=== PATIENT | male | born 1975 | race Two or more races ===

== ENCOUNTER → 2020-05-09 | Outpatient (CLI) | payer SELFPAY | END | disposition home or self-care (01) | LOC: STAR 08:45 | PROVIDERS: ATTEND Thoracic Surgery (Cardiothoracic Vascular Surgery) | DX: Z01.818 Encounter for other preprocedural examination (principal); Z11.59 Encounter for screening for other viral diseases | CPT/HCPCS: 36415; 87635 ==

== ENCOUNTER 2020-05-14 10:56 | Day surgery (SDC) | payer BC ==
[2020-05-13 10:31] LABS: MICROSCOPIC NOT IND
[~2020-05-14] VITALS: Ht 175.3 cm; Wt 90.5 kg
[~2020-05-14 10:56] MED LIST: BUPIVACAINE/PF-EPI 0.5% 1:200K ONE; LANS30CA PO; PREG75CA PO; SUCR1TAB PO
[2020-05-14] MEDS ORDERED: LACTATED RINGERS 1,000 ML IV SCH ×2 (11:26→15:00)
[2020-05-14] MEDS ORDERED: CHLORHEXIDINE 15 ML UDC MM ONE (11:30)
[2020-05-14] MEDS ORDERED: FENTANYL PF 100 MCG/2ML ONE ×3 (11:46→14:23)
[2020-05-14] MEDS ORDERED: MIDAZOLAM 1 MG/ML, 2ML ONE (12:28)
[2020-05-14] MEDS ORDERED: BUPIVACAINE/PF-EPI 0.5% 1:200K INFIL ONE (12:46)
[2020-05-14] MEDS ORDERED: ACETAMINOPHEN 325 MG TABLET PO PRN (13:00)
[2020-05-14] MEDS ORDERED: ALBUTEROL SULFATE 2.5 MG/3 ML NPPB PRN (13:00)
[2020-05-14] MEDS ORDERED: HYDROmorphone 1 MG/ML, 1ML INJ IVPush PRN (13:00)
[2020-05-14] MEDS ORDERED: LORazepam 2 MG/ML, 1ML IVPush PRN (13:00)
[2020-05-14] MEDS ORDERED: PROMETHAZINE 25 MG/ML, 1ML IVPush PRN (13:00)
[2020-05-14] MEDS ORDERED: hydrALAzine 20 MG/ML, 1ML IV PRN (13:00)
[2020-05-14] MEDS ORDERED: METHOCARBAMOL 1,000 MG in DEXTROSE 5% 100 ML IV PRN (13:00)
[2020-05-14] MEDS ORDERED: OXYcodone 5 MG/5 ML ORAL.SOL UDC PO PRN (13:00)
[2020-05-14] MEDS ORDERED: LABETALOL 5MG/ML, 20ML IV PRN (13:00)
[2020-05-14] MEDS ORDERED: MEPERIDINE/PF 25MG/0.5ML IVPush PRN (13:00)
[2020-05-14] MEDS ORDERED: GLYCOPYRROLATE 0.2MG/1ML, 5ML ONE (13:14)
[2020-05-14] MEDS ORDERED: ONDANSETRON 2MG/ML, 2ML ONE (13:14)
[2020-05-14] MEDS ORDERED: CEFOTETAN PMX 2GM/50ML 50 ML ONE (13:14)
[2020-05-14] MEDS ORDERED: DEXAMETHASONE 4 MG/ML, 1ML ONE (13:14)
[2020-05-14] MEDS ORDERED: NEOSTIGMINE 1 MG/ML, 10ML ONE (13:14)
[2020-05-14] MEDS ORDERED: PROPOFOL 10 MG/ML, 20ML ONE (13:14)
[2020-05-14] MEDS ORDERED: ROCURONIUM 10MG/ML,5ML ONE (13:14)
[2020-05-14] MEDS ORDERED: HYDROcodone/APAP 5/325 TABLET PO PRN (13:30)
[2020-05-14] MEDS ORDERED: morphine SULFATE 10 MG/ML, 1ML IVPush PRN (13:30)
[2020-05-14] MEDS ORDERED: ONDANSETRON 2MG/ML, 2ML IVPush PRN (13:30)
[2020-05-14] MEDS: FENTANYL PF 100 MCG/2ML IV PRN ×2 (14:25→14:34)
[2020-05-14] MEDS ORDERED: ACETAMINOPHEN 650 MG/20.3 ML UDC ONE (14:36)
[2020-05-14] MEDS ORDERED: OXYcodone 5 MG/5 ML ORAL.SOL UDC ONE (14:36)
== END 2020-05-14 16:15 | disposition home or self-care (01) ==
LOC: OUT 10:56
PROVIDERS: ATTEND Thoracic Surgery (Cardiothoracic Vascular Surgery)
DX: K80.10 Calculus of gallbladder with chronic cholecystitis without obstruction (principal); K82.8 Other specified diseases of gallbladder; K21.9 Gastro-esophageal reflux disease without esophagitis; Z79.899 Other long term (current) drug therapy
CPT/HCPCS: 47562; 81003; 88304; J1100; J2250; J2405; J2704; J2710; J3010; J3490; J7120